=== PATIENT | male | born 1980 | race American Indian/Alaskan Native ===

== ENCOUNTER 2022-01-22 08:55 | Emergency (ER) | payer SELFPAY ==
[2022-01-22] MEDS ORDERED: Lidocaine 1% with EPINEPHrine 1:100,000 50 ML MDV INFILT ONE (09:14)
[2022-01-22] MEDS ORDERED: Bacitracin Oint 1 GM U/D Packet TOP ONE (09:14)
[2022-01-22] MEDS ORDERED: Diphtheria,Pertussis(Acell),Tetanus Vaccine 0.5 ML Syringe IM ONE (09:15)
== END 2022-01-22 10:03 | disposition home or self-care (01) ==
LOC: JP.ED 08:55
DX: S61.412A Laceration without foreign body of left hand, initial encounter (principal); F17.210 Nicotine dependence, cigarettes, uncomplicated; Z23 Encounter for immunization; W26.8XXA Contact with other sharp object(s), not elsewhere classified, initial encounter
CPT/HCPCS: 12002; 90471; 90715; 99282-25